=== PATIENT | female | born 1935 | race Caucasian/White ===

== ENCOUNTER 2020-09-22 14:26 | Outpatient (CLI) | payer OTHER ==
[~2020-09-22 14:26] MED LIST: ADULT ASPIRIN81 MG PO; AMLODIPINE BESYL5 MG PO; COZAAR100 MG PO; GLIPIZIDE5 MG PO; HumaLOG 100 UNIT/1 M SUBCUTANEO; LIPITOR20 MG PO; LOSARTAN POTASS50 MG PO; LYRICA100 MG PO; Lantus 1000 U/10 ML SUBCUTANEO; PACERONE100 MG PO; POLY119PG PO; TRAM1TAB98 PO
== END 2020-09-22 15:04 | disposition home or self-care (01) ==
LOC: OFIC 805 14:26
PROVIDERS: ATTEND Otolaryngology Otology & Neurotology
DX: H93.11 Tinnitus, right ear (principal); H61.23 Impacted cerumen, bilateral

== ENCOUNTER 2024-07-07 15:29 | Inpatient (IN) | payer OTHER ==
[~2024-07-07] VITALS: Ht 149.9 cm; Wt 54.4 kg
[2024-07-07] MEDS ORDERED: HORIZANT300 MG (15:56)
[2024-07-07] MEDS ORDERED: PLAVIX75 MG (15:56)
[2024-07-07] MEDS ORDERED: METFORMIN HCL1000 M2 (15:56)
[2024-07-07] MEDS ORDERED: PROTONIX40 MG (15:56)
[2024-07-07 17:31] LABS: HEMATOCRIT 40.8 % (36.0-45.00); HEMOGLOBIN 13.7 g/dL (12.0-15.00); MEAN CELL VOLUME 90.2 fL (80.00-100.00); MEAN CORPUSCULAR HEMOGLOBIN 30.3 pg (27.00-32.0); MEAN CORPUSCULAR HGB CONC 33.6 g/dl (32.0-36.0); PLATELET COUNT 238 K/uL (150-450); RED BLOOD COUNT 4.53 M/uL (4.00-6.00)
[2024-07-07] MEDS ORDERED: ACETAMINOPHEN 500 MG GEL..CAP PO ONE (18:08)
[2024-07-07 18:14] LABS: INR 1.05; PARTIAL THROMBOPLASTIN TIME 30.2 SECONDS (22.0-34.0); PROTHROMBIN TIME 11.4 SECONDS (9.0-11.5)
[2024-07-07] MEDS ORDERED: ACETAMINOPHEN 500 MG GEL..CAP PO STA (18:14)
[2024-07-07 18:27] LABS: ALBUMIN 3.2 gm/dL (3.4-5.0); BILIRUBIN TOTAL 1.36 mg/dL (0.3-1.2); CREATININE SERUM 0.84 mg/dL (0.55-1.02); GFR 64.13; POTASSIUM 4.17 mEq/L (3.5-5.1); TOTAL PROTEIN 7.2 gm/dL (6.4-8.2)
[2024-07-07 18:36] LABS: PH,URINE 5.5 (5.0-8.0); URINE APPEARANCE Cloudy; URINE BILIRRUBIN Negative (NEGATIVE); URINE COLOR Dark Yellow; URINE GLUCOSE Negative (NEGATIVE); URINE KETONE Trace (NEGATIVE); URINE LEUKOCYTE Large; URINE NITRATE Positive
[2024-07-07 18:39] LABS: URINE BACTERIA 2021.9 uL (0.0-1933); URINE EPITHELIAL CELLS 22.4 uL (0.0-38.8); URINE RBC 5.4 uL (0.0-20.8); URINE WBC 1256.7 uL (0.0-23.2)
[2024-07-07 20:07] LABS: URINE BLOOD TRACE; URINE CAST 0.73 uL (0.0-1.40); URINE PROTEIN 100 (NEGATIVE)
[2024-07-07 20:09] LABS: URINE YEAST MODERATE /hpf
[2024-07-07] MEDS ORDERED: CEFTRIAXONE SODIUM 1,000 MG VIAL IV ONE (20:45)
[2024-07-07] MEDS ORDERED: CEFTRIAXONE SODIUM 1,000 MG VIAL ONE (21:02)
[2024-07-07] MEDS ORDERED: FLUCONAZOLE IN NACL,ISO-OSM 200 MG/100 ML PIGGYBAG IV STA (22:59)
[2024-07-07] MEDS ORDERED: ACETAMINOPHEN 325 MG TABLET PO PRN (23:00)
[2024-07-07] MEDS ORDERED: 0.9 % SODIUM CHLORIDE 1,000 ML IV SCH (23:15)
[2024-07-07] MEDS ORDERED: INSULIN LISPRO 1,000 UNIT/10 ML UNITS SUBCUTANEO PRN (23:15)
[2024-07-07] MEDS ORDERED: DEXTROSE 50 % IN WATER 0.5 G/ML DISP.SYRIN IV PRN (23:15)
[2024-07-07] MEDS ORDERED: PIPERACILLIN/TAZOBACTAM SODIUM 3.375 GM VIAL IV ONE (23:30)
[2024-07-07 23:53] VITALS: BP 105/60; O2SAT 100
[2024-07-08] MEDS ORDERED: PIPERACILLIN/TAZOBACTAM SODIUM 3.375 GM in DEXTROSE 5 % IN WATER 100 ML IV SCH
[2024-07-08] MEDS ORDERED: IPRATROPIUM/ALBUTEROL SULFATE 3 ML AMPUL.NEB IH SCH
[2024-07-08 00:01] LABS: ABG PH 7.411 (7.35-7.45); ABG PO2 69.8 mmHg (80-100); ABG pCO2 38.7 mmHg (35-45); BASE EXCESS -0.4 mmol/l; SaO2 93.9 %; Tco2 25.2 mmol/l
[2024-07-08 00:04] LABS: allen test SATISFACTORY; o2 21 %; puncture site RADIAL LEFT
[2024-07-08 01:55] VITALS: BP 151/63; O2SAT 96
[2024-07-08] MEDS ORDERED: LOSARTAN POTASSIUM 50 MG TABLET PO SCH (09:00)
[2024-07-08] MEDS ORDERED: ATORVASTATIN CALCIUM 40 MG TABLET PO SCH (09:00)
[2024-07-08] MEDS ORDERED: CLOPIDOGREL BISULFATE 75 MG TABLET PO SCH (09:00)
[2024-07-08] MEDS ORDERED: GABAPENTIN 300 MG CAPSULE PO SCH (09:00)
[2024-07-08] MEDS ORDERED: AMLODIPINE BESYLATE 5 MG TABLET PO SCH (09:00)
[2024-07-08] MEDS ORDERED: PANTOPRAZOLE SODIUM 40 MG/VIAL VIAL IV SCH (09:00)
[2024-07-08 09:22] VITALS: BP 143/63; O2SAT 97
[2024-07-08] MEDS ORDERED: FLUCONAZOLE IN NACL,ISO-OSM 200 MG/100 ML PIGGYBAG IV SCH (17:00)
[2024-07-08] MEDS ORDERED: MEROPENEM 500 MG/VIAL VIAL IV SCH (17:00)
[2024-07-08] MEDS ORDERED: ENOXAPARIN SODIUM 40 MG/0.4 ML SYRINGE SUBCUTANEO SCH (17:08)
[2024-07-08 17:09] VITALS: BP 108/62; O2SAT 93
[2024-07-09 00:49] VITALS: BP 107/61
[2024-07-09 09:41] VITALS: BP 142/69; O2SAT 97
[2024-07-09 16:24] VITALS: BP 143/63; O2SAT 98
[2024-07-10 01:37] VITALS: BP 147/75
[2024-07-10 05:29] LABS: ALBUMIN 2.4 gm/dL (3.4-5.0); BILIRUBIN TOTAL 0.85 mg/dL (0.3-1.2); CALCIUM 7.8 mg/dL (8.5-10.1); CREATININE SERUM 0.6 mg/dL (0.55-1.02); GFR 94.56; GLOBULINA 3.8 G/DL (2.4-3.5); POTASSIUM 3.79 mEq/L (3.5-5.1); TOTAL PROTEIN 6.2 gm/dL (6.4-8.2)
[2024-07-10 06:57] LABS: HEMOGLOBIN 12.5 g/dL (12.0-15.00); MEAN CELL VOLUME 89.4 fL (80.00-100.00); MEAN CORPUSCULAR HEMOGLOBIN 30.2 pg (27.00-32.0); MEAN CORPUSCULAR HGB CONC 33.8 g/dl (32.0-36.0); PLATELET COUNT 250 K/uL (150-450); RED BLOOD COUNT 4.14 M/uL (4.00-6.00); RED CELL DISTRIBUTION WIDTH 14.1 % (11.5-14.5)
[2024-07-10 08:39] VITALS: BP 190/90
[2024-07-10] MEDS ORDERED: RINGERS SOLUTION,LACTATED 1,000 ML IV SCH (11:00)
[2024-07-10] MEDS ORDERED: AMLODIPINE BESYLATE 5 MG TABLET PO STA (11:09)
[2024-07-10] MEDS ORDERED: LINEZOLID IN DEXTROSE 5% 600 MG/300 ML PIGGYBAG IV STA (11:09)
[2024-07-10 13:15] VITALS: BP 117/62
[2024-07-10 16:00] VITALS: BP 119/65; O2SAT 96
[2024-07-10] MEDS ORDERED: LINEZOLID IN DEXTROSE 5% 600 MG/300 ML PIGGYBAG IV SCH (21:00)
[2024-07-11 00:31] VITALS: BP 128/57
[2024-07-11 06:27] LABS: HEMATOCRIT 35.3 % (36.0-45.00); HEMOGLOBIN 11.7 g/dL (12.0-15.00); MEAN CELL VOLUME 91.4 fL (80.00-100.00); MEAN CORPUSCULAR HEMOGLOBIN 30.4 pg (27.00-32.0); MEAN CORPUSCULAR HGB CONC 33.3 g/dl (32.0-36.0); PLATELET COUNT 253 K/uL (150-450); RED BLOOD COUNT 3.86 M/uL (4.00-6.00); RED CELL DISTRIBUTION WIDTH 13.7 % (11.5-14.5)
[2024-07-11 08:49] VITALS: BP 144/80; O2SAT 96
[2024-07-11] MEDS ORDERED: LOSARTAN POTASSIUM 100 MG TABLET PO SCH (09:00)
[2024-07-11 17:38] VITALS: BP 154/70; O2SAT 96
[2024-07-11 20:58] LABS: PH,URINE 6.5 (5.0-8.0); URINE APPEARANCE Clear; URINE BILIRRUBIN Negative (NEGATIVE); URINE BLOOD Negative; URINE COLOR Yellow; URINE KETONE Trace (NEGATIVE); URINE NITRATE Negative
[2024-07-11 20:59] LABS: URINE BACTERIA 9.7 uL (0.0-1933); URINE EPITHELIAL CELLS 16.1 uL (0.0-38.8); URINE RBC 6.7 uL (0.0-20.8)
[2024-07-11] MEDS ORDERED: LINEZOLID 600 MG TABLET PO SCH (21:00)
[2024-07-11 21:46] LABS: URINE CAST 0.29 uL (0.0-1.40); URINE CRYSTALS FEW /HPF; URINE GLUCOSE 100 MG/DL (NEGATIVE); URINE MUCUS MODERATE; URINE PROTEIN 100 (NEGATIVE)
[2024-07-11 21:47] LABS: URINE LEUKOCYTE Small
[2024-07-12] VITALS: BP 128/69; O2SAT 96
[2024-07-12 08:19] VITALS: BP 90/55
[2024-07-12] MEDS ORDERED: PANTOPRAZOLE SODIUM 40 MG TABLET.DR PO SCH (09:00)
[2024-07-12] MEDS ORDERED: FLUCONAZOLE IN NACL,ISO-OSM 200 MG/100 ML PIGGYBAG IV STA (09:55)
[2024-07-12 11:12] LABS: HEMATOCRIT 39.3 % (36.0-45.00); HEMOGLOBIN 13.4 g/dL (12.0-15.00); MEAN CELL VOLUME 88.8 fL (80.00-100.00); MEAN CORPUSCULAR HEMOGLOBIN 30.4 pg (27.00-32.0); MEAN CORPUSCULAR HGB CONC 34.2 g/dl (32.0-36.0); PLATELET COUNT 324 K/uL (150-450); RED BLOOD COUNT 4.42 M/uL (4.00-6.00)
[2024-07-12 17:01] VITALS: BP 128/62; O2SAT 97
[2024-07-12] MEDS ORDERED: RINGERS SOLUTION,LACTATED 500 ML IV STA (17:21)
[2024-07-13] VITALS: BP 123/68; O2SAT 97
[2024-07-13] MEDS ORDERED: FLUCONAZOLE IN NACL,ISO-OSM 100 MG/50 ML PIGGYBAG IV SCH (09:00)
[2024-07-13 09:21] VITALS: BP 140/85
[2024-07-13] MEDS ORDERED: FLUCONAZOLE IN NACL,ISO-OSM 2 MG/ML ML IV SCH (12:00)
[2024-07-13 17:16] VITALS: BP 120/60; O2SAT 94
[2024-07-14 02:13] VITALS: BP 156/69
[2024-07-14 08:56] VITALS: BP 157/70
[2024-07-14 16:06] VITALS: BP 139/66; O2SAT 98
[2024-07-15 02:28] VITALS: BP 122/57; O2SAT 95
[2024-07-15] MEDS ORDERED: INSULIN NPH HUM/REG INSULIN HM 1,000 UNIT/10 ML UNITS SUBCUTANEO SCH (08:00)
[2024-07-15 08:09] LABS: BILIRUBIN TOTAL 0.46 mg/dL (0.3-1.2); CALCIUM 7.9 mg/dL (8.5-10.1); CREATININE SERUM 0.64 mg/dL (0.55-1.02); GFR 87.78; GLOBULINA 3.6 G/DL (2.4-3.5); POTASSIUM 4.38 mEq/L (3.5-5.1); TOTAL PROTEIN 5.6 gm/dL (6.4-8.2)
[2024-07-15 08:59] VITALS: BP 103/60; O2SAT 96
[2024-07-15] MEDS ORDERED: LOSARTAN POTASSIUM 50 MG TABLET PO SCH (09:00)
[2024-07-15 11:07] LABS: HEMATOCRIT 34.5 % (36.0-45.00); HEMOGLOBIN 11.4 g/dL (12.0-15.00); MEAN CELL VOLUME 90.6 fL (80.00-100.00); MEAN CORPUSCULAR HEMOGLOBIN 29.9 pg (27.00-32.0); PLATELET COUNT 299 K/uL (150-450); RED BLOOD COUNT 3.81 M/uL (4.00-6.00); RED CELL DISTRIBUTION WIDTH 13.9 % (11.5-14.5)
[2024-07-15 14:07] LABS: ABG PH 7.461 (7.35-7.45); ABG PO2 101.4 mmHg (80-100); ABG pCO2 37.1 mmHg (35-45); BASE EXCESS 2.3 mmol/l; BICARBONATE 25.9 mmol/l (23-25); SaO2 98.2 %; Tco2 27.1 mmol/l
[2024-07-15 14:23] LABS: allen test SATISFACTORY; o2 21 %; puncture site RADIAL LEFT
[2024-07-15] MEDS ORDERED: AMINO ACIDS/PROTEIN HYDROLYS 30 ML BLIST.PACK PO SCH (17:00)
[2024-07-15] MEDS ORDERED: IRON FUM,PS/FOLIC/BCOMP,C NO.9 1 CAP CAPSULE PO SCH (17:00)
[2024-07-15] MEDS ORDERED: AMLODIPINE BESYLATE 5 MG TABLET PO SCH (17:00)
[2024-07-15 17:50] VITALS: BP 118/55; O2SAT 97
[2024-07-15] MEDS ORDERED: METHYLPREDNISOLONE SOD SUCC 40 MG VIAL ONE (20:38)
[2024-07-15] MEDS ORDERED: DOCUSATE SODIUM 100MG CAP PO SCH (21:00)
[2024-07-16 02:23] VITALS: BP 120/55
[2024-07-16 06:27] LABS: HEMATOCRIT 32.9 % (36.0-45.00); HEMOGLOBIN 11.1 g/dL (12.0-15.00); MEAN CELL VOLUME 88.9 fL (80.00-100.00); MEAN CORPUSCULAR HGB CONC 33.8 g/dl (32.0-36.0); PLATELET COUNT 299 K/uL (150-450); RED CELL DISTRIBUTION WIDTH 14.1 % (11.5-14.5)
[2024-07-16 09:25] VITALS: BP 146/67; O2SAT 95
[2024-07-16] MEDS ORDERED: GLUMETZA500 MG PO (14:15)
[2024-07-16] MEDS ORDERED: INTESTINEX680 M1 PO (14:16)
[2024-07-16] MEDS ORDERED: MACROBID 100 M100 MG PO (14:16)
[2024-07-16] MEDS ORDERED: INTEGRA PLUS C1 EACH PO (14:17)
[2024-07-16] MEDS ORDERED: AMLODIPINE BESYL5 MG PO (14:17)
[2024-07-16] MEDS ORDERED: CLOPIDOGREL BIS75 MG PO (14:17)
[2024-07-16] MEDS ORDERED: COZAAR50 MG PO (14:18)
[2024-07-16] MEDS ORDERED: COLACE100 MG PO (14:18)
[2024-07-16] MEDS ORDERED: PROTEINEX-18 LI30 ML PO (14:18)
[2024-07-16] MEDS ORDERED: GABAPENTIN300 MG PO (14:18)
[2024-07-16] MEDS ORDERED: LIPITOR40 M1 PO (14:18)
[2024-07-16 16:32] VITALS: BP 131/64; O2SAT 97
== END 2024-07-16 17:16 | disposition home or self-care (01) | DRG 871 ==
LOC: ER 15:29 → MEDI 23:26
PROVIDERS: General Practice; Internal Medicine; Internal Medicine Infectious Disease; ADMIT Internal Medicine; ATTEND Internal Medicine
PROC: BB24ZZZ Computerized Tomography (CT Scan) of Bilateral Lungs (ICD-10-PCS; principal; 2024-07-07)
PROC: BW21YZZ Computerized Tomography (CT Scan) of Abdomen and Pelvis using Other Contrast (ICD-10-PCS; 2024-07-08)
PROC: 3E0F7GC Introduction of Other Therapeutic Substance into Respiratory Tract, Via Natural or Artificial Opening (ICD-10-PCS; 2024-07-08)
PROC: B54MZZZ Ultrasonography of Right Upper Extremity Veins (ICD-10-PCS; 2024-07-10)
DX: A41.9 Sepsis, unspecified organism (principal); J18.9 Pneumonia, unspecified organism; N39.0 Urinary tract infection, site not specified; B96.29 Other Escherichia coli [E. coli] as the cause of diseases classified elsewhere; E86.0 Dehydration; R41.82 Altered mental status, unspecified; E11.9 Type 2 diabetes mellitus without complications; Z79.4 Long term (current) use of insulin; I10 Essential (primary) hypertension; F03.90 Unspecified dementia, unspecified severity, without behavioral disturbance, psychotic disturbance, mood disturbance, and anxiety; D72.828 Other elevated white blood cell count

== ENCOUNTER 2024-07-20 10:37 | Emergency (ER) | payer OTHER ==
[~2024-07-20] VITALS: Ht 162.6 cm; Wt 63.5 kg
[~2024-07-20 10:37] MED LIST changes: +CLOPIDOGREL BIS75 MG PO; +COLACE100 MG PO; +COZAAR50 MG PO; +GABAPENTIN300 MG PO; +GLUMETZA500 MG PO; +HORIZANT300 MG; +INTEGRA PLUS C1 EACH PO; +INTESTINEX680 M1 PO; +LIPITOR40 M1 PO; +MACROBID 100 M100 MG PO; +METFORMIN HCL1000 M2; +PLAVIX75 MG; +PROTEINEX-18 LI30 ML PO; +PROTONIX40 MG
[2024-07-20] MEDS ORDERED: 0.9 % SODIUM CHLORIDE 1,000 ML IV SCH (11:00)
[2024-07-20 11:19] LABS: HEMATOCRIT 38.4 % (36.0-45.00); HEMOGLOBIN 12.4 g/dL (12.0-15.00); MEAN CELL VOLUME 90.1 fL (80.00-100.00); MEAN CORPUSCULAR HGB CONC 32.2 g/dl (32.0-36.0); PLATELET COUNT 456 K/uL (150-450); RED BLOOD COUNT 4.26 M/uL (4.00-6.00); RED CELL DISTRIBUTION WIDTH 13.8 % (11.5-14.5)
[2024-07-20 12:01] LABS: CALCIUM 8.8 mg/dL (8.5-10.1); CREATININE SERUM 0.69 mg/dL (0.55-1.02); GFR 80.48; POTASSIUM 3.83 mEq/L (3.5-5.1)
[2024-07-20 12:45] LABS: PH,URINE 5.5 (5.0-8.0); URINE APPEARANCE Cloudy; URINE BILIRRUBIN Negative (NEGATIVE); URINE BLOOD Negative; URINE COLOR Dark Yellow; URINE GLUCOSE Negative (NEGATIVE); URINE KETONE Negative (NEGATIVE); URINE LEUKOCYTE Negative; URINE NITRATE Negative; URINE PROTEIN 30 (NEGATIVE); URINE UROBILINOGEN 0.2 E.U./dl
[2024-07-20 13:04] LABS: URINE BACTERIA 63.6 uL (0.0-1933); URINE CAST 3.97 uL (0.0-1.40); URINE EPITHELIAL CELLS 66.3 uL (0.0-38.8); URINE RBC 43.1 uL (0.0-20.8); URINE WBC 29.2 uL (0.0-23.2)
[2024-07-20 13:46] LABS: URINE CRYSTALS MODERATE /HPF; URINE MUCUS MODERATE
== END 2024-07-20 18:05 | disposition home or self-care (01) ==
LOC: ER 10:37
PROVIDERS: Emergency Medicine
DX: G30.9 Alzheimer's disease, unspecified (principal); F02.80 Dementia in other diseases classified elsewhere, unspecified severity, without behavioral disturbance, psychotic disturbance, mood disturbance, and anxiety; Z78.9 Other specified health status; R55 Syncope and collapse; Z20.822 Contact with and (suspected) exposure to COVID-19; I10 Essential (primary) hypertension
CPT/HCPCS: 36415; 51702; 70450; 93005; 96365; 96366; 99284; J7030

== ENCOUNTER 2024-07-22 16:48 | Emergency (ER) | payer OTHER ==
[~2024-07-22] VITALS: Ht 157.5 cm; Wt 54.4 kg
[2024-07-22] MEDS ORDERED: 0.9 % SODIUM CHLORIDE 1,000 ML IV SCH ×2 (17:00→19:00)
[2024-07-22 18:05] LABS: HEMATOCRIT 40.3 % (36.0-45.00); HEMOGLOBIN 13.2 g/dL (12.0-15.00); MEAN CELL VOLUME 89.5 fL (80.00-100.00); MEAN CORPUSCULAR HEMOGLOBIN 29.2 pg (27.00-32.0); MEAN CORPUSCULAR HGB CONC 32.7 g/dl (32.0-36.0); PLATELET COUNT 560 K/uL (150-450); RED BLOOD COUNT 4.51 M/uL (4.00-6.00); RED CELL DISTRIBUTION WIDTH 13.7 % (11.5-14.5)
[2024-07-22 18:30] LABS: ALBUMIN 2.7 gm/dL (3.4-5.0); BILIRUBIN TOTAL 0.8 mg/dL (0.3-1.2); CALCIUM 9.1 mg/dL (8.5-10.1); CREATININE SERUM 0.58 mg/dL (0.55-1.02); GFR 98.34; GLOBULINA 5.5 G/DL (2.4-3.5); POTASSIUM 4.18 mEq/L (3.5-5.1); TOTAL PROTEIN 8.2 gm/dL (6.4-8.2)
[2024-07-22 18:38] LABS: URINE APPEARANCE Cloudy; URINE BILIRRUBIN Negative (NEGATIVE); URINE BLOOD Moderate; URINE COLOR Dark Yellow; URINE GLUCOSE Negative (NEGATIVE); URINE KETONE 15 (NEGATIVE); URINE LEUKOCYTE Small; URINE NITRATE Negative; URINE PROTEIN 30 (NEGATIVE)
[2024-07-22 18:42] LABS: URINE BACTERIA 1438.1 uL (0.0-1933); URINE CAST 1.61 uL (0.0-1.40); URINE EPITHELIAL CELLS 35.7 uL (0.0-38.8); URINE RBC 36.5 uL (0.0-20.8); URINE WBC 965.9 uL (0.0-23.2)
[2024-07-22 18:59] LABS: URINE CRYSTALS FEW /HPF; URINE MUCUS MODERATE
[2024-07-22] MEDS ORDERED: ACETAMINOPHEN 500 MG GEL..CAP PO PRN (19:30)
[2024-07-22] MEDS ORDERED: INSULIN LISPRO 1,000 UNIT/10 ML UNITS SUBCUTANEO PRN (19:45)
[2024-07-22] MEDS ORDERED: DEXTROSE 50 % IN WATER 0.5 G/ML DISP.SYRIN IV PRN (19:45)
[2024-07-22 21:48] LABS: INR 1.07; PARTIAL THROMBOPLASTIN TIME 27.2 SECONDS (22.0-34.0); PROTHROMBIN TIME 11.6 SECONDS (9.0-11.5)
[2024-07-23] MEDS ORDERED: AMLODIPINE BESYLATE 5 MG TABLET PO SCH (09:00)
[2024-07-23] MEDS ORDERED: GABAPENTIN 300 MG CAPSULE PO SCH (09:00)
[2024-07-23] MEDS ORDERED: CEFTRIAXONE SODIUM 2,000 MG in 0.9 % SODIUM CHLORIDE 100 ML IV SCH (09:00)
[2024-07-23] MEDS ORDERED: FAMOTIDINE/PF 20 MG in 0.9 % SODIUM CHLORIDE 8 ML IV PUSH SCH (09:00)
[2024-07-23] MEDS ORDERED: ATORVASTATIN CALCIUM 40 MG TABLET PO SCH (09:00)
[2024-07-23] MEDS ORDERED: LOSARTAN POTASSIUM 50 MG TABLET PO SCH (09:00)
== END 2024-07-23 14:33 | disposition designated cancer center or children's hospital (05) ==
LOC: ER 16:48
PROVIDERS: Emergency Medicine; General Practice
DX: R63.0 Anorexia (principal); E86.0 Dehydration; E11.9 Type 2 diabetes mellitus without complications; Z79.84 Long term (current) use of oral hypoglycemic drugs; E78.00 Pure hypercholesterolemia, unspecified; I10 Essential (primary) hypertension; E03.8 Other specified hypothyroidism; Z74.01 Bed confinement status; F03.90 Unspecified dementia, unspecified severity, without behavioral disturbance, psychotic disturbance, mood disturbance, and anxiety; Z86.73 Personal history of transient ischemic attack (TIA), and cerebral infarction without residual deficits; Z20.822 Contact with and (suspected) exposure to COVID-19; I62.9 Nontraumatic intracranial hemorrhage, unspecified
CPT/HCPCS: 36415; 70450; 71045; 71250; 96365; 96366; 96372; 99285; J0696; J3490; J7030

== ENCOUNTER 2024-08-26 10:08 | Inpatient (IN) | payer OTHER ==
[~2024-08-26] VITALS: Ht 162.6 cm; Wt 65.8 kg
[2024-08-26] MEDS ORDERED: KETOROLAC TROMETHAMINE 30 MG VIAL IV ONE (11:15)
[2024-08-26] MEDS ORDERED: KETOROLAC TROMETHAMINE 30 MG VIAL ONE (11:43)
[2024-08-26 11:55] LABS: HEMATOCRIT 39.5 % (36.0-45.00); HEMOGLOBIN 12.7 g/dL (12.0-15.00); MEAN CELL VOLUME 89.4 fL (80.00-100.00); MEAN CORPUSCULAR HEMOGLOBIN 28.7 pg (27.00-32.0); MEAN CORPUSCULAR HGB CONC 32.1 g/dl (32.0-36.0); PLATELET COUNT 402 K/uL (150-450); RED BLOOD COUNT 4.42 M/uL (4.00-6.00); RED CELL DISTRIBUTION WIDTH 17.5 % (11.5-14.5)
[2024-08-26 12:13] LABS: INR 1.05; PARTIAL THROMBOPLASTIN TIME 22.2 SECONDS (22.0-34.0); PROTHROMBIN TIME 11.4 SECONDS (9.0-11.5)
[2024-08-26 12:16] LABS: ALBUMIN 2.9 gm/dL (3.4-5.0); BILIRUBIN TOTAL 0.91 mg/dL (0.3-1.2); CALCIUM 9.2 mg/dL (8.5-10.1); CREATININE SERUM 0.49 mg/dL (0.55-1.02); GFR 119.46; GLOBULINA 5.7 G/DL (2.4-3.5); POTASSIUM 4.16 mEq/L (3.5-5.1); TOTAL PROTEIN 8.6 gm/dL (6.4-8.2)
[2024-08-26 13:08] LABS: URINE APPEARANCE Turbid; URINE BILIRRUBIN Negative (NEGATIVE); URINE BLOOD Trace; URINE COLOR Dark Yellow; URINE GLUCOSE Negative (NEGATIVE); URINE LEUKOCYTE Moderate; URINE NITRATE Positive
[2024-08-26 13:42] LABS: URINE KETONE 80 (NEGATIVE); URINE PROTEIN 300 (NEGATIVE)
[2024-08-26 13:43] LABS: URINE CRYSTALS MANY /HPF; URINE EPITHELIAL CELLS 9.3 uL (0.0-38.8); URINE RBC 20.3 uL (0.0-20.8); URINE WBC 594.6 uL (0.0-23.2)
[2024-08-26 13:44] LABS: URINE BACTERIA > 9821.5 uL (0.0-1933); URINE CAST > 21.83 uL (0.0-1.40)
[2024-08-26] MEDS ORDERED: PIPERACILLIN/TAZOBACTAM SODIUM 3.375 GM VIAL IV ONE ×2 (16:00→16:15)
[2024-08-26] MEDS ORDERED: CEFTRIAXONE SODIUM 2,000 MG in 0.9 % SODIUM CHLORIDE 100 ML IV SCH (20:46)
[2024-08-26] MEDS ORDERED: ENALAPRILAT DIHYDRATE 1.25 MG/ML VIAL IV PRN (21:15)
[2024-08-26] MEDS ORDERED: DEXTROSE 50 % IN WATER 0.5 G/ML DISP.SYRIN IV PRN (21:15)
[2024-08-26] MEDS ORDERED: INSULIN LISPRO 1,000 UNIT/10 ML UNITS SUBCUTANEO PRN (21:15)
[2024-08-27 00:20] VITALS: BP 137/70; O2SAT 96
[2024-08-27 01:31] VITALS: BP 121/78
[2024-08-27 01:50] LABS: CALCIUM 9.3 mg/dL (8.5-10.1); CHOL HDL RATIO 3.1 (0-5.0); CREATININE SERUM 0.42 mg/dL (0.55-1.02); GFR 142.72; POTASSIUM 4.42 mEq/L (3.5-5.1)
[2024-08-27 02:17] VITALS: BP 109/68; O2SAT 94
[2024-08-27 08:00] VITALS: BP 122/66; O2SAT 95
[2024-08-27] MEDS ORDERED: AMINO ACIDS 4.25 %/DEXTROSE 5% 1,000 ML PERIFERAL SCH ×2 (17:00)
[2024-08-27 17:43] VITALS: BP 131/66; O2SAT 98
[2024-08-27] MEDS ORDERED: 0.9 % SODIUM CHLORIDE 1,000 ML IV SCH (20:00)
[2024-08-28 00:09] VITALS: BP 113/52; O2SAT 98
[2024-08-28 08:00] VITALS: BP 146/78; O2SAT 95
[2024-08-28 09:29] LABS: HEMATOCRIT 40.7 % (36.0-45.00); HEMOGLOBIN 13.1 g/dL (12.0-15.00); MEAN CELL VOLUME 90.1 fL (80.00-100.00); MEAN CORPUSCULAR HEMOGLOBIN 29.1 pg (27.00-32.0); MEAN CORPUSCULAR HGB CONC 32.3 g/dl (32.0-36.0); PLATELET COUNT 390 K/uL (150-450); RED BLOOD COUNT 4.51 M/uL (4.00-6.00); RED CELL DISTRIBUTION WIDTH 17.4 % (11.5-14.5)
[2024-08-28 10:42] LABS: CALCIUM 9.8 mg/dL (8.5-10.1); CREATININE SERUM 0.37 mg/dL (0.55-1.02); GFR 165.2; POTASSIUM 4.16 mEq/L (3.5-5.1)
[2024-08-28 16:00] VITALS: BP 145/82; O2SAT 100
[2024-08-29] VITALS: BP 129/73; O2SAT 98
[2024-08-29 10:21] VITALS: BP 107/65; O2SAT 98
[2024-08-30 01:21] VITALS: BP 160/78; O2SAT 95
[2024-08-30 10:20] VITALS: BP 142/89; O2SAT 98
[2024-08-30 16:00] VITALS: BP 135/84; O2SAT 96
[2024-08-30] MEDS ORDERED: 0.9 % SODIUM CHLORIDE 1,000 ML IV SCH (21:45)
[2024-08-31] VITALS: BP 149/72; O2SAT 96
[2024-08-31 07:42] LABS: CALCIUM 8.9 mg/dL (8.5-10.1); POTASSIUM 3.31 mEq/L (3.5-5.1)
[2024-08-31 07:50] LABS: CREATININE SERUM 0.27 mg/dL (0.55-1.02); GFR 237.64
[2024-08-31 08:00] VITALS: BP 160/80; O2SAT 96
[2024-08-31] MEDS ORDERED: ENOXAPARIN SODIUM 40 MG/0.4 ML SYRINGE SUBCUTANEO SCH (09:00)
[2024-08-31] MEDS ORDERED: POTASSIUM CHLORIDE IN WATER 100 ML IV SCH (12:00)
[2024-08-31 17:22] VITALS: BP 155/69; O2SAT 100
[2024-09-01 00:45] VITALS: BP 152/82; O2SAT 96
[2024-09-01 08:00] VITALS: BP 160/80; O2SAT 97
[2024-09-01 12:22] LABS: CALCIUM 8.5 mg/dL (8.5-10.1); GFR 248.22; POTASSIUM 3.54 mEq/L (3.5-5.1)
[2024-09-01 12:27] LABS: CREATININE SERUM 0.26 mg/dL (0.55-1.02)
[2024-09-01 16:09] VITALS: BP 144/70; O2SAT 97
[2024-09-02 01:24] VITALS: BP 125/68; O2SAT 98
[2024-09-02 08:49] VITALS: BP 162/80; O2SAT 98
[2024-09-02 13:00] VITALS: BP 132/69
[2024-09-02 16:27] VITALS: BP 152/71; O2SAT 97
[2024-09-03] VITALS: BP 137/80; O2SAT 96
[2024-09-03 08:17] VITALS: BP 147/78; O2SAT 98
== END 2024-09-03 12:23 | disposition home health service (06) | DRG 394 ==
LOC: ER 10:08 → SURH 20:46
PROVIDERS: General Practice; Internal Medicine; Surgery; ADMIT Student in an Organized Health Care Education/Training Program; ATTEND Student in an Organized Health Care Education/Training Program
PROC: 3E0336Z Introduction of Nutritional Substance into Peripheral Vein, Percutaneous Approach (ICD-10-PCS; 2024-08-28)
PROC: 0T2BX0Z Change Drainage Device in Bladder, External Approach (ICD-10-PCS; 2024-08-28)
PROC: 8E0ZXY6 Isolation (ICD-10-PCS; 2024-08-29)
PROC: 3E0G76Z Introduction of Nutritional Substance into Upper GI, Via Natural or Artificial Opening (ICD-10-PCS; 2024-08-30)
PROC: 02HV33Z Insertion of Infusion Device into Superior Vena Cava, Percutaneous Approach (ICD-10-PCS; 2024-08-30)
PROC: B548ZZA Ultrasonography of Superior Vena Cava, Guidance (ICD-10-PCS; 2024-08-30)
PROC: 0DH63UZ Insertion of Feeding Device into Stomach, Percutaneous Approach (ICD-10-PCS; principal; 2024-08-30 19:00)
DX: K94.29 Other complications of gastrostomy (principal); E46 Unspecified protein-calorie malnutrition; N17.9 Acute kidney failure, unspecified; N39.0 Urinary tract infection, site not specified; E86.0 Dehydration; E11.622 Type 2 diabetes mellitus with other skin ulcer; L89.152 Pressure ulcer of sacral region, stage 2; R13.10 Dysphagia, unspecified; I12.9 Hypertensive chronic kidney disease with stage 1 through stage 4 chronic kidney disease, or unspecified chronic kidney disease; N18.9 Chronic kidney disease, unspecified; G30.1 Alzheimer's disease with late onset; F02.80 Dementia in other diseases classified elsewhere, unspecified severity, without behavioral disturbance, psychotic disturbance, mood disturbance, and anxiety; Z74.01 Bed confinement status; Z66 Do not resuscitate; Z79.01 Long term (current) use of anticoagulants; Z79.84 Long term (current) use of oral hypoglycemic drugs